=== PATIENT | male | born 1960 | race African-American/Black ===

== ENCOUNTER 2017-05-28 10:28 | Inpatient (IN) | payer MEDICAID ==
[~2017-05-28] VITALS: Ht 180.3 cm; Wt 97.1 kg
[2017-05-28] MEDS ORDERED: SODIUM CHLORIDE 0.9% 1,000 ML IV ONE (10:39)
[2017-05-28] MEDS ORDERED: FUROSEMIDE 40 MG/4 ML VIAL IV ONE (11:30)
[2017-05-28 11:56] LABS: Basophils # (auto) 0.1 uL; Basophils % (auto) 0.8 % (0.0-2.0); Eosinophils # (auto) 0.1 uL; Eosinophils % (auto) 1.1 % (0.0-7.0); Hematocrit 38.9 % (41.0-53.0); Hemoglobin 12.5 g/dL (13.5-17.5); Lymphocytes # (auto) 1.7 uL; Lymphocytes % (auto) 19.2 % (10.0-50.0); Mean Corpuscular Hemoglobin 27.9 pg (28.0-32.0); Mean Corpuscular Hgb Conc. 32.3 g/dL (32.0-36.0); Mean Corpuscular Volume 86.3 fL (80.0-100.0); Mean Platelet Volume 8.7 fL (6.9-10.8); Monocytes # (auto) 1.2 uL; Monocytes % (auto) 13.7 % (0.0-12.0); Neutrophils # (auto) 5.7 uL; Neutrophils % (auto) 65.2 % (37.0-80.0); Nucleated Red Blood Cells % 0.4 %; Platelet Count (auto) 418 10^3/uL (140-450); White Blood Cell 8.7 10^3/uL (4.4-10.8)
[2017-05-28 12:17] LABS: INR 1.12 (0.9-1.15); Partial Thromboplastin Time 28.2 sec (22.64-33.71); Prothrombin Time 12.2 sec (9.37-12.3)
[2017-05-28 12:42] LABS: B-Type Natriuretic Peptide 1776.3 pg/mL (0-100)
[2017-05-28 13:08] LABS: Temperature: 23.5 C (20.0-25.0)
[2017-05-28 13:32] LABS: Potassium 3.8 mmol/L (3.5-5.1)
[2017-05-28 13:33] LABS: Albumin 1.6 g/dL (3.4-5.0); BUN/Creatinine Ratio 19.1; Bilirubin, Total 1.7 mg/dL (0.2-1.0); Calcium 8.1 mg/dL (8.5-10.1); Total Protein 7.4 g/dL (6.4-8.2)
[2017-05-28 13:39] LABS: Anisocytosis Slight; Giant Platelets Few; Large Platelets FEW; Platelet Estimate Adequate
[2017-05-28 14:24] LABS: Urine Blood 1+ /uL (Negative); Urine Color Yellow (Yellow); Urine Glucose Normal (Normal); Urine Hyaline Cast FEW /lpf (0 - 2); Urine Ketone Negative (Negative); Urine Mucus FEW (None Seen); Urine Nitrite Negative (Negative); Urine RBC 3 /hpf (0 - 3); Urine Squamous Epithelial Cell FEW /hpf (<5)
[2017-05-28 14:28] LABS: Urine Bilirubin Negative (Negative)
[2017-05-28] MEDS ORDERED: GABAPENTIN 400 MG CAP PO ONE (14:45)
[2017-05-28] MEDS ORDERED: ACETAMINOPHEN 325 MG TAB PO PRN (15:00)
[2017-05-28] MEDS ORDERED: TEMAZEPAM 15 MG CAP PO PRN (15:00)
[2017-05-28] MEDS ORDERED: ONDANSETRON HCL 4 MG/2 ML VIAL IV PRN (15:00)
[2017-05-28] MEDS ORDERED: ASPirin-EC 81 mg tab PO ONE (15:00)
[2017-05-28] MEDS ORDERED: NITROGLYCERIN 0.4 MG SL TAB SL PRN (15:00)
[2017-05-28] MEDS ORDERED: DOCUSATE SOD 100 MG CAP PO PRN (15:00)
[2017-05-28] MEDS ORDERED: cefTRIAXone 1GM/50ML D5W 50 ML IV ONE (15:00)
[2017-05-28] MEDS ORDERED: DEXTROSE (50%) 50ML SYRG IV PRN (15:00)
[2017-05-28] MEDS: ACCU-CHEK COMFORT CURVE STRIP VI SCH ×2 (17:21→21:35)
[2017-05-28] MEDS: GABAPENTIN 400 MG CAP PO SCH ×2 (17:47→21:33)
[2017-05-28] MEDS: FUROSEMIDE 40 MG/4 ML VIAL IV SCH (17:47)
[2017-05-28] MEDS: InsuLIN REG 1unit/0.01ml Soln (100units/ml) SC SCH ×2 (17:48→21:35)
[2017-05-28 18:01] VITALS: BP 144/86
[2017-05-28] MEDS ORDERED: FURO40TA4 PO (18:42)
[2017-05-28] MEDS ORDERED: CARV12.544 PO (18:42)
[2017-05-28] MEDS ORDERED: GABA-494 PO (18:42)
[2017-05-28] MEDS: Boost Glucose Control 8 Ounces PO SCH (21:11)
[2017-05-28] MEDS: POTASSIUM CHL 10 Meq TABLET PO SCH (21:32)
[2017-05-28] MEDS: FAMOTIDINE 20 MG TAB PO SCH (21:32)
[2017-05-28] MEDS: HYDROcodone-ACET 5/325MG TAB PO PRN (21:33)
[2017-05-28] MEDS: CARVEDILOL 12.5 MG TAB PO SCH (21:34)
[2017-05-28] MEDS: INSULIN DETEMIR(LEVEMIR) 1unit/0.01ml Soln (100units/ml) SC SCH (21:35)
[2017-05-28 22:00] VITALS: BP 126/78
[2017-05-28] MEDS ORDERED: ATORVASTATIN 20 MG TAB PO SCH (22:00)
[2017-05-29] MEDS: HYDROcodone-ACET 5/325MG TAB PO PRN ×3 (02:21→13:16)
[2017-05-29] MEDS: SODIUM CHLOR 0.9% PF (SALINE LOCK) 10ML VIAL IV SCH ×3 (04:45→14:00)
[2017-05-29 04:50] VITALS: BP 120/85
[2017-05-29] MEDS: Boost Glucose Control 8 Ounces PO SCH ×2 (05:16→12:00)
[2017-05-29] MEDS: GABAPENTIN 400 MG CAP PO SCH ×2 (05:17→11:23)
[2017-05-29] MEDS: FUROSEMIDE 40 MG/4 ML VIAL IV SCH (05:18)
[2017-05-29 05:48] LABS: Basophils # (auto) 0.1 uL; Eosinophils # (auto) 0.1 uL; Eosinophils % (auto) 1.4 % (0.0-7.0); Hematocrit 34.4 % (41.0-53.0); Hemoglobin 10.9 g/dL (13.5-17.5); Lymphocytes # (auto) 1.4 uL; Lymphocytes % (auto) 18.7 % (10.0-50.0); Mean Corpuscular Hemoglobin 27.3 pg (28.0-32.0); Mean Corpuscular Hgb Conc. 31.8 g/dL (32.0-36.0); Mean Platelet Volume 8.7 fL (6.9-10.8); Monocytes # (auto) 1.1 uL; Monocytes % (auto) 14.7 % (0.0-12.0); Neutrophils # (auto) 4.9 uL; Neutrophils % (auto) 64.2 % (37.0-80.0); Nucleated Red Blood Cells % 0.5 %; Platelet Count (auto) 345 10^3/uL (140-450); White Blood Cell 7.7 10^3/uL (4.4-10.8)
[2017-05-29 06:12] LABS: Red Cell Distribution Width 20.7 % (11.8-14.3)
[2017-05-29 06:29] LABS: Albumin 1.5 g/dL (3.4-5.0); BUN/Creatinine Ratio 20.2; Bilirubin, Total 1.3 mg/dL (0.2-1.0); Calcium 7.7 mg/dL (8.5-10.1); Potassium 3.5 mmol/L (3.5-5.1); Total Protein 6.5 g/dL (6.4-8.2)
[2017-05-29] MEDS: INSULIN DETEMIR(LEVEMIR) 1unit/0.01ml Soln (100units/ml) SC SCH (06:34)
[2017-05-29] MEDS: InsuLIN REG 1unit/0.01ml Soln (100units/ml) SC SCH ×2 (06:34→11:20)
[2017-05-29] MEDS: ACCU-CHEK COMFORT CURVE STRIP VI SCH ×2 (06:35→11:19)
[2017-05-29 06:42] LABS: Platelet Estimate Adequate
[2017-05-29 06:44] LABS: Anisocytosis Slight
[2017-05-29 07:36] VITALS: BP 142/88
[2017-05-29] MEDS: CARVEDILOL 12.5 MG TAB PO SCH (08:58)
[2017-05-29] MEDS: POTASSIUM CHL 10 Meq TABLET PO SCH (08:59)
[2017-05-29] MEDS: FAMOTIDINE 20 MG TAB PO SCH (08:59)
[2017-05-29] MEDS ORDERED: cefTRIAXone 1GM/50ML D5W 50 ML IV SCH (09:00)
[2017-05-29] MEDS ORDERED: ASPirin-EC 81 mg tab PO SCH (10:00)
[2017-05-29] MEDS ORDERED: MULTIPLE VITAMIN TAB PO SCH (10:00)
[2017-05-29 11:14] VITALS: BP 128/89
[2017-05-29 12:53] VITALS: BP 128/89
== END 2017-05-29 19:30 | disposition home or self-care (01) | DRG 194 ==
LOC: ER 10:28 → EDBD 10:28 → TELE 10:29 → EAST 17:43 → TELE-EAST 20:21
PROVIDERS: ADMIT Internal Medicine; ATTEND Internal Medicine
DX: I13.0 Hypertensive heart and chronic kidney disease with heart failure and stage 1 through stage 4 chronic kidney disease, or unspecified chronic kidney disease (principal); E43 Unspecified severe protein-calorie malnutrition; E10.21 Type 1 diabetes mellitus with diabetic nephropathy; I50.43 Acute on chronic combined systolic (congestive) and diastolic (congestive) heart failure; N39.0 Urinary tract infection, site not specified; F14.90 Cocaine use, unspecified, uncomplicated; I70.0 Atherosclerosis of aorta; E10.22 Type 1 diabetes mellitus with diabetic chronic kidney disease; N18.2 Chronic kidney disease, stage 2 (mild); Z83.3 Family history of diabetes mellitus; Z95.810 Presence of automatic (implantable) cardiac defibrillator; Z79.4 Long term (current) use of insulin; Z88.5 Allergy status to narcotic agent; Z82.49 Family history of ischemic heart disease and other diseases of the circulatory system; Z68.29 Body mass index [BMI] 29.0-29.9, adult
CPT/HCPCS: 36415; 71010; 74176; 80053; 80307; 81001; 82962; 83036; 83880; 84484; 85025; 85610; 85730; 87086; 93005; 96361; 96365; 96375; J0696; J1815

== ENCOUNTER 2017-06-07 06:01 | Emergency (ER) | payer MEDICAID ==
[~2017-06-07] VITALS: Ht 180.3 cm; Wt 77.1 kg
[~2017-06-07 06:01] MED LIST: CARV12.544 PO; FURO40TA4 PO; GABA-494 PO
[2017-06-07] MEDS ORDERED: SODIUM CHLORIDE 0.9% 1,000 ML IV ONE ×2 (06:33)
[2017-06-07] MEDS ORDERED: KETOROLAC TROMETH 30 MG/ML 1ML VIAL IV ONE (06:45)
[2017-06-07] MEDS ORDERED: ONDANSETRON HCL 4 MG/2 ML VIAL IV ONE (06:45)
[2017-06-07] MEDS ORDERED: FUROSEMIDE 40 MG/4 ML VIAL IV ONE (07:15)
[2017-06-07 07:19] LABS: Basophils # (auto) 0.1 uL; Eosinophils # (auto) 0 uL; Mean Corpuscular Hemoglobin 27.6 pg (28.0-32.0); Mean Corpuscular Hgb Conc. 31.4 g/dL (32.0-36.0); Mean Platelet Volume 8.7 fL (6.9-10.8)
[2017-06-07 07:20] LABS: Basophils % (auto) 1.1 % (0.0-2.0); Eosinophils % (auto) 0.4 % (0.0-7.0); Hematocrit 44.2 % (41.0-53.0); Hemoglobin 13.9 g/dL (13.5-17.5); Lymphocytes # (auto) 1.5 uL; Lymphocytes % (auto) 20.7 % (10.0-50.0); Mean Corpuscular Volume 87.9 fL (80.0-100.0); Monocytes # (auto) 0.9 uL; Monocytes % (auto) 12.9 % (0.0-12.0); Neutrophils # (auto) 4.6 uL; Neutrophils % (auto) 64.9 % (37.0-80.0); Nucleated Red Blood Cells % 0.8 %; Platelet Count (auto) 452 10^3/uL (140-450); White Blood Cell 7.1 10^3/uL (4.4-10.8)
[2017-06-07 07:25] LABS: Red Cell Distribution Width 21.3 % (11.8-14.3)
[2017-06-07 07:31] LABS: Anisocytosis Slight; Platelet Estimate Increased
[2017-06-07 07:36] LABS: INR 1.19 (0.9-1.15); Partial Thromboplastin Time 28.7 sec (22.64-33.71)
[2017-06-07 07:49] LABS: Albumin 1.8 g/dL (3.4-5.0); Bilirubin, Total 1.1 mg/dL (0.2-1.0); Calcium 8.1 mg/dL (8.5-10.1); Magnesium 2.8 mg/dL (1.6-2.6); Potassium 4.5 mmol/L (3.5-5.1); Total Protein 7.4 g/dL (6.4-8.2)
[2017-06-07 08:30] VITALS: BP 153/102
== END 2017-06-07 09:09 | disposition home or self-care (01) ==
LOC: ER 06:02
DX: I11.0 Hypertensive heart disease with heart failure (principal); I50.9 Heart failure, unspecified; E11.9 Type 2 diabetes mellitus without complications; E43 Unspecified severe protein-calorie malnutrition; Z68.23 Body mass index [BMI] 23.0-23.9, adult; Z88.6 Allergy status to analgesic agent; Z95.0 Presence of cardiac pacemaker
CPT/HCPCS: 36415; 71010; 80053; 82150; 83690; 83735; 84484; 85025; 85610; 85730; 93005; 96361; 96374; 96375; 99285; J1885; J1940; J2405; J7030